=== PATIENT | female | born 1960 | race Caucasian/White ===

== ENCOUNTER 2016-08-02 19:15 | Emergency (ER) ==
[2016-08-02 19:30] VITALS: BP 128/082
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
== END 2016-08-02 20:41 | disposition home or self-care (01) ==
LOC: P.ED 19:15
DX: T76.21XA Adult sexual abuse, suspected, initial encounter (principal)
CPT/HCPCS: 99282

== ENCOUNTER 2018-07-28 12:55 | Inpatient (IN) ==
[2018-07-28] MEDS ORDERED: M.V.I.-12 10 ML, FOLIC ACID 1 MG, MAGNESIUM SULFATE 1 GM, THIAMINE 100 MG in NS 1,000 ML IV ONE (16:32)
[2018-07-28] MEDS ORDERED: ATIVAN IV ONE (16:33)
--- NOTE | 2018-07-28 16:38 | PROVIDER DOCUMENTATION ---
This chart was entered by Lety Faulkner Scribe, acting as scribe for Sunni Henson CRNP. HPI-General Adult - General Chief Complaint: Dizziness Stated Complaint: WEAKNESS N/V/D Time Seen by Provider: 07/28/18 16:23 Source: patient Allergies/Adverse Reactions: Patient Allergies Allergy/AdvReac Type Severity Reaction Status Date / Time No Known Allergies Allergy Verified 07/28/18 16:57 - History of Present Illness -Gen Adult Nature of Presenting Problems: 57 yowf presents to the ed with multiple complaints of dizziness n/v/d, sob, wea kness, tremors, decreased appetite, cough and sts onset was 2 weeks prior. pt sts she can not ambulate well but walked back from the bathroom without assist while provider was in the room. pt admits to drinking wine x2 weekly but denies drinking this week. Location of Pain/Injury: reports: generalized Quality of Pain: reports: aching Severity: reports: moderate Onset/Duration: reports: other (2 weeks) Timing: reports: still present, intermittent Context/Activities at Onset: reports: light activity Modifying Factors: improves with: nothing Associated Symptoms: reports: cough, diarrhea, dizziness, loss of appetite, malaise, muscle aches, nausea, shortness of breath, vomiting, weakness, trouble walking. denies: fever/chills Similar Symptoms Previously?: No Recently seen or treated by another doctor?: No Review of Systems - Adult - REVIEW OF SYSTEMS - ADULT Constitutional: denies: chills, fever Eyes: reports: no symptoms reported Ears, Nose, Mouth & Throat: reports: no symptoms reported Cardiovascular: denies: chest pain, palpitations Respiratory: reports: see HPI, cough, shortness of breath. denies: wheezing Gastrointestinal: reports: see HPI, diarrhea, nausea, poor appetite, vomiting Genitourinary: reports: see HPI, incontinence Musculoskeletal: reports: see HPI, muscle aches, muscle weakness Integumentary: reports: no symptoms reported Neurological: reports: see HPI, dizziness/vertigo, loss of balance, tremors. denies: headache/migraines, slurred speech Psychiatric: reports: no symptoms reported Endocrine: reports: no symptoms reported Hematologic/Lymphatic: reports: no symptoms reported Allergic/Immunologic: reports: no symptoms reported All Other Systems: Reviewed and Negative Past History - Adult - PAST MEDICAL HISTORY-ADULT Review of Records: reports: Old Records Reviewed, Nursing Assessment Review, Medications Reviewed, Social history reviewed & non-contributory. Major Childhood Illnesses: reports: denies history Cardiovascular: reports: denies history Respiratory: reports: denies history Gastrointestinal: reports: denies history Obstetrical/Gynecological: reports: denies history Genitourinary: reports: denies history Musculoskeletal: reports: denies history Hand Dominance: Right Handed Neurological: reports: denies history Psychiatric: reports: depression Endocrine/Immune: reports: denies history Other Conditions: reports: denies history - PRIOR SURGERIES/PROCEDURES Surgical/Procedure History: reports: reviewed, not pertinent - IMMUNIZATION STATUS Childhood Immunizations: See Nurse Assessment Flu Vaccine: See Nurse Assessment - FAMILY HISTORY Family History: reviewed, not pertinent - SOCIAL HISTORY Smoking: cigarettes, greater than 1 pack/day Provider spent 3-5 mins advising pt. on dangers of tobacco.: Discussed manners to quit use, and f/u contacts for add'l counseling. Substance Use: alcohol Alcohol Use Frequency: twice a week Number of drinks per typical drinking period:: 3-4 drinks Living Situation: alone Physical Exam-General - PHYSICAL EXAM-ADULT Initial Vital Signs Reviewed: Yes - CONSTITUTIONAL General Appearance: alert, mild distress - EYES Eyes: PERRL/EOMI, scleral icterus - HEAD, EARS, NOSE, MOUTH & THROAT HENMT: normocephalic/atraumatic, TMs normal, dental decay. negative: moist mucous membranes (dry) - NECK Neck: non-tender, full range of motion, supple, normal inspection, tender lateral (sts posterior neck muscle tenderness) - RESPIRATORY Respiratory: chest non-tender, lungs clear, normal breath sounds, no pleuratic chest pain, no respiratory distress, no accessory muscle use - CARDIOVASCULAR Cardiovascular: normal peripheral pulses, regular rate, rhythm, no gallop, no murmur, tachycardia (122) - GASTROINTESTINAL (ABDOMEN) Abdominal Exam: normal bowel sounds, soft, distended (Ascites), other (diarrhea while in ed). negative: guarding - GENITOURINARY Female Genitalia/Pelvic Exam: deferred Rectal Exam: deferred Hemoccult Exam: heme positive stool (Obtained from BM) - LYMPHATIC Lymphatic: no adenopathy - MUSCULOSKELETAL Back Exam: normal inspection Extremity: normal range of motion, non-tender, normal inspection, no pedal edema - SKIN Integumentary: normal turgor, warm/dry, pallor - NEUROLOGIC Neurologic: grossly normal - PSYCHIATRIC Psych/Mental Status: normal mood/affect, normal thought content, normal thought process, oriented x 3 Progress - PLAN OF CARE/RESULTS Progress/Plan/Lab Results: Vital Signs - 8 hr 07/28/18 13:20 Temperature 98.2 F Pulse Rate 122 H Respiratory Rate 20 Blood Pressure 114/77 O2 Sat by Pulse Oximetry 97 Orders Category Date Time Status ALCOHOL BLOOD Stat Lab 07/28/18 16:21 Uncollected CBC WITH ELECTRONIC DIFF [HEME] Stat Lab 07/28/18 16:20 Uncollected COMPREHENSIVE METABOLIC PANEL [CHEM] Stat Lab 07/28/18 16:21 Uncollected LIPASE [CHEM] Stat Lab 07/28/18 16:[address] W/POSS RFLX CULT [URINALYSIS] Stat Lab 07/28/18 16:21 Uncollected 1841 - patient had mucous stool almost black in color. Patient denies eating anything dark. Hemoccult collected. Result Diagrams: 07/28/18 16:55 07/28/18 16:55 - REASSESSMENT Reassessment #1 Time Reassessed: 17:23 Status: unchanged - CT/MRI 1 CT Study: Abdomen Impression: See EMR Report ([facility] [address] [facility], [address], [place] [address] Department of Imaging Patient: ANGLE PATTON Date: 07/28/18MR#: [id number] : 1960ADM Status: REG [facility]#: [id number] Age/Sex: 57/FRoom/Bed: Loc: P.ED Ordering Physician: Sunni Henson Family Physician: Nia Green Reason for Procedure: abd pain/elevated LFTs Signed EXAM: CT ABD/PELVIS W/IV CONT ONLY 07/28/2018 HISTORY: abd pain/elevated LFTs TECHNIQUE: This exam was performed using automated exposure control, adjustment of mA or kV according to patient size, and/or use of iterative reconstruction technique. COMMENT: There is no evidence of acute disease in the visualized portion of the chest. There is severe hepatic steatosis. The liver is enlarged. The spleen is not enlarged. The adrenal glands are within normal limits. The pancreas is unremarkable in appearance. There is no evidence of cholelithiasis. The left kidney is without evidence of hydronephrosis or mass. There is marked cortical scarring in the right kidney suggesting chronic pyelonephritis. There is no evidence of bowel obstruction. The aorta is not distended. There is no evidence of significant adenopathy. Pelvis: The appendix is normal in appearance. There is diverticulosis in the sigmoid colon without evidence of active diverticulitis. There is no evidence of free fluid. There are no masses and there is no evidence of significant adenopathy. The visualized skeleton is intact. IMPRESSION: Steatohepatitis with hepatomegaly. Electronically signed by Donte Mcfadden 07/28/2018 7:03 PM 07/28/18 1903 Interpreting Physician: Donte Mcfadden MD Dictated Date/Time: 07/28/18 1859 cc: Sunni Henson; Nia Green) - CONSULTS/PCP/HOSPITALIST Notification #1 *Consult/PCP/Hospitalist*: [place] Time Discussed: 19:34 Consult Disposition: other (Consult Hospitalist @ ) #2 Consult: [place] Time Discussed: 20:47 Consult Disposition: Admit (admit to ICU/stepdown pending bed availability) Departure - Departure Date of Disposition Decision: 07/28/18 Time of Disposition Decision: 20:20 DIAGNOSIS: Elevated liver enzymes, Melena Anemia Qualifiers: Anemia type: unspecified type Qualified Code(s): D64.9 - Anemia, unspecified Disposition: ADMITTED INPATIENT 09 Certified Medical Emergency: Emergent Condition: Fair Referrals and Follow-Ups: Nai Green [Primary Care Provider] - - Critical Care Note This patient required my direct & personal management of CC.: No Attestation - Physician/ DAYANA Attestation Patient care was provided by Advanced Practice Provider:: Yes Advanced Practice Provider:: Henson,Sunni A. Advanced Practice Provider documentation review:: The Mid-level provider documentation, treatment plan and medical decision making was reviewed by the physician who agrees with all treatment and medical decision making by the MLP. The physician spent face to face time with patient:: Yes (MD Pacheco) Advanced Practice Provider documentation review:: Supervising physician onsite and consulted in the evaluation and care of this patient. The physician did have a face to face encounter with the patient. This chart was documented by the indicated scribe, (Lety Faulkner Scribe) and accurately reflects the services I performed and decisions made by , Sunni Henson CRNP, as attested by the provider's signature.
[2018-07-28 17:21] LABS: BASO# 0.02 X1000 (0.0-0.2); BASO% 0.2 % (0.0-0.8); HEMATOCRIT 33.2 % (37.0-47.0); HEMOGLOBIN 11.6 g/dL (12.0-16.0); IMM GRAN% 1.2 % (0.0-0.5); LYMPH# 0.72 X1000 (1.2-3.4); MCH 34.8 PG (27-31); MCHC 34.9 g/dL (33-37); MCV 99.7 FL (81-99); MONO# 0.47 X1000 (0.11-0.59); MONO% 5.9 % (1.7-9.3); MPV 11.9 FL (7.4-10.4); NEUT# 6.71 X1000 (1.4-6.5); NEUT% 83.7 % (42.2-75.2); PLT 118 X1000 (130-400); RBC 3.33 XMIL (4.2-5.4); RDW 15.7 % (11.5-14.5); WBC 8.02 X1000 (4.8-10.8)
[2018-07-28 17:38] LABS: AGAP 24; ALBUMIN 3.1 g/dL (3.5-5.0); ALKALINE PHOSPHATASE 387 U/L (32-104); BUN 7 mg/dL (8-22); CALCIUM 8.5 mg/dL (8.8-10.2); CHLORIDE 86 mmol/L (98-107); COSMO 263; CREATININE 0.3 mg/dL (0.5-0.9); ESTIMATED GFR > 60; GLUCOSE 134 mg/dL (70-104); GPT 272 U/L (10-36); LIPASE 23 U/L (13-60); POTASSIUM 4.1 mmol/L (3.5-5.1); SODIUM 131 mmol/L (136-145); TCO2 21 mmol/L (25-35); TOTAL PROTEIN 6.9 g/dL (6.3-8.3)
[2018-07-28 18:49] LABS: GOT 741 U/L (10-30)
[2018-07-28 18:54] LABS: OCCULT BLOOD 1 POSITIVE (NEGATIVE)
--- NOTE | 2018-07-28 19:05 | Diag Imaging Result Doc PS360 ---
EXAM: CT ABD/PELVIS W/IV CONT ONLY 07/28/2018 HISTORY: abd pain/elevated LFTs TECHNIQUE: This exam was performed using automated exposure control, adjustment of mA or kV according to patient size, and/or use of iterative reconstruction technique. COMMENT: There is no evidence of acute disease in the visualized portion of the chest. There is severe hepatic steatosis. The liver is enlarged. The spleen is not enlarged. The adrenal glands are within normal limits. The pancreas is unremarkable in appearance. There is no evidence of cholelithiasis. The left kidney is without evidence of hydronephrosis or mass. There is marked cortical scarring in the right kidney suggesting chronic pyelonephritis. There is no evidence of bowel obstruction. The aorta is not distended. There is no evidence of significant adenopathy. Pelvis: The appendix is normal in appearance. There is diverticulosis in the sigmoid colon without evidence of active diverticulitis. There is no evidence of free fluid. There are no masses and there is no evidence of significant adenopathy. The visualized skeleton is intact. IMPRESSION: Steatohepatitis with hepatomegaly. Electronically signed by Donte Mcfadden 07/28/2018 7:03 PM
[2018-07-28] MEDS ORDERED: ATIVAN IV PRN (20:56)
[2018-07-28] MEDS ORDERED: SODIUM CHLORIDE 0.9% INJ SCH (21:00)
[2018-07-28 21:11] LABS: INR 1.14; PROTIME 15.2 Seconds (11.0-16.0)
[2018-07-28 21:12] LABS: PTT 37.1 Seconds (22.3-41.8)
[2018-07-28] MEDS ORDERED: ZOFRAN IV PRN (21:17)
[2018-07-28 21:30] LABS: MAGNESIUM 1.7 mg/dL (1.5-2.7); PHOSPHORUS 1.9 mg/dL (2.7-4.5)
--- NOTE | 2018-07-28 21:57 | Diag Imaging Result Doc PS360 ---
EXAM: CT HEAD W/O CONTRAST 07/28/2018 HISTORY: Seizure,Hx of Alcohol Abuse TECHNIQUE: This exam was performed using automated exposure control, adjustment of mA or kV according to patient size, and/or use of iterative reconstruction technique. COMMENT: There is mild cerebral atrophy. There is no evidence of mass effect, bleed, or abnormal extra-axial fluid collection. The visualized paranasal sinuses are clear. The calvarium is intact. There are no previous studies available for comparison. IMPRESSION: No evidence of acute intracranial disease. Electronically signed by Donte Mcfadden 07/28/2018 9:54 PM
[2018-07-28] MEDS: PROTONIX IV SCH (22:24)
[2018-07-28] MEDS: NS 1,000 ML IV SCH (22:34)
[2018-07-28] MEDS: ATIVAN IV PRN (23:07)
--- NOTE | 2018-07-28 23:33 | ED EKG INTERP ---
EKG Interpretation - EKG Time of EKG reading by physician:: 23:30 EKG Read and Signed by:: Aubrey Medrano EKG Interpretation (*Must complete 3 of following elements*): Abnormal Rate: 123 Rhythm: Sinus tachycardia with short IL IL Interval: shortened Attestation - Physician/ DAYANA Attestation Patient care was provided by Advanced Practice Provider:: Yes Advanced Practice Provider:: Sunni Henson Advanced Practice Provider documentation review:: The Mid-level provider documentation, treatment plan and medical decision making was reviewed by the physician who agrees with all treatment and medical decision making by the MLP. The physician spent face to face time with patient:: Yes (MD Pacheco) Advanced Practice Provider documentation review:: Supervising physician onsite and consulted in the evaluation and care of this patient. The physician did have a face to face encounter with the patient.
--- NOTE | 2018-07-29 06:40 | EKG Report ---
Test Performed on : 07/28/2018 11:26:06 PM Test Reason : GI Bleed, Alcohol Abuse Blood Pressure : / mmHG Vent. Rate : 123 BPM Atrial Rate : 123 BPM P-R Int : 104 ms QRS Dur : 070 ms QT Int : 414 ms P-R-T Axes : 000 010 074 degrees QTc Int : 592 ms Sinus tachycardia. with short CT Nonspecific T wave abnormality Abnormal ECG No previous ECGs available Unconfirmed Result
[2018-07-29 07:19] LABS: BASO# 0.01 X1000 (0.0-0.2); BASO% 0.1 % (0.0-0.8); EOS# 0.01 X1000 (0.0-0.7); EOS% 0.1 % (0.0-10.0); HEMOGLOBIN 9.9 g/dL (12.0-16.0); IMM GRAN# 0.08 X1000 (0.0-0.04); IMM GRAN% 1.2 % (0.0-0.5); LYMPH# 1.19 X1000 (1.2-3.4); LYMPH% 17.3 % (20.5-51.1); MCH 34.5 PG (27-31); MCHC 34.1 g/dL (33-37); MONO# 0.34 X1000 (0.11-0.59); MONO% 4.9 % (1.7-9.3); MPV 11.5 FL (7.4-10.4); NEUT# 5.26 X1000 (1.4-6.5); NEUT% 76.4 % (42.2-75.2); PLT 96 X1000 (130-400); RBC 2.87 XMIL (4.2-5.4); RDW 15.5 % (11.5-14.5); WBC 6.89 X1000 (4.8-10.8)
[2018-07-29 07:37] LABS: BILIRUBIN URINE 3+ (NEGATIVE); BLOOD URINE NEGATIVE (NEGATIVE); CLARITY SL. CLOUDY (CLEAR); COLOR AMBER; GLUCOSE URINE NEGATIVE (NEGATIVE); KETONE URINE 1+(Small) mg/dL (NEGATIVE); LEUKOCYTES URINE 1+ (NEGATIVE); NITRITE URINE NEGATIVE (NEGATIVE); PH URINE 6.5; PROTEIN URINE 1+(30 mg/dL) mg/dL (NEGATIVE); UROBILINOGEN URINE 4 mg/dL
[2018-07-29 07:41] LABS: URINE BACTERIA 4+ /HFP; URINE EPITHELIAL CELLS >10 /HPF (<10); URINE RBC <10 /HPF (<10); URINE SOURCE CLEAN CATCH
[2018-07-29] MEDS: ATIVAN IV PRN (07:49)
[2018-07-29 08:00] LABS: AGAP 16; ALBUMIN 2.5 g/dL (3.5-5.0); ALKALINE PHOSPHATASE 322 U/L (32-104); BUN 5 mg/dL (8-22); CALCIUM 7.8 mg/dL (8.8-10.2); CHLORIDE 89 mmol/L (98-107); COSMO 259; CREATININE 0.3 mg/dL (0.5-0.9); ESTIMATED GFR > 60; GLUCOSE 116 mg/dL (70-104); GOT 564 U/L (10-30); GPT 217 U/L (10-36); MAGNESIUM 1.7 mg/dL (1.5-2.7); POTASSIUM 3.4 mmol/L (3.5-5.1); SODIUM 130 mmol/L (136-145); TCO2 25 mmol/L (25-35); TOTAL PROTEIN 5.8 g/dL (6.3-8.3)
[2018-07-29 08:08] LABS: PHOSPHORUS 0.8 mg/dL (2.7-4.5)
[2018-07-29] MEDS ORDERED: POTASSIUM PHOSPHATE 15 MMOL in NS 250 ML IV ONE (09:00)
[2018-07-29] MEDS: NS 1,000 ML IV SCH (09:15)
[2018-07-29] MEDS: PROTONIX IV SCH (09:15)
[2018-07-29] MEDS ORDERED: M.V.I.-12 10 ML, FOLIC ACID 1 MG, MAGNESIUM SULFATE 1 GM, THIAMINE 100 MG in NS 1,000 ML IV SCH (10:00)
[2018-07-29] MEDS ORDERED: ROCEPHIN 1 GM in NS 50 ML IV SCH (10:00)
--- NOTE | 2018-07-29 10:07 | Diag Imaging Result Doc PS360 ---
EXAM: US ABDOMEN-COMPLETE - 07/29/2018 HISTORY: Abd Pain,Alcohol Abuse TECHNIQUE: Ultrasound abdomen COMPARISON: 09/10/2017 FINDINGS: The liver is borderline prominent in size and appears diffusely echodense, suggesting fatty infiltration. There is no focal liver lesion identified. Doppler image shows hepatopedal flow in the portal vein. The spleen appears in the lower range of normal for size. There is no ascites seen. The gallbladder is visualized and demonstrates no abnormalities. There is no evidence of gallstones. The technologist reports negative sonographic Schreiber's sign. The common bile duct is normal caliber at 5 mm. The pancreas is obscured by bowel gas artifacts. There are no abnormalities of the bilateral kidneys identified. The abdominal aorta and IVC are partially obscured by bowel gas artifacts, but visualized portions appear normal caliber. IMPRESSION: Borderline hepatomegaly, with evidence of fatty infiltration of the liver. No evidence of focal liver lesion. No other visible abnormality. The pancreas is obscured by bowel gas artifacts. Electronically signed by Mesfin Elizondo 07/29/2018 10:04 AM
--- NOTE | 2018-07-29 10:11 | HISTORY AND PHYSICAL ---
PRIMARY CARE PHYSICIAN: Dr. Nia Green. CHIEF COMPLAINT: Dizziness, shortness of breath, weakness, decreased appetite, black/tarry stools, nausea, vomiting, diarrhea and tremors. HISTORY OF PRESENTING ILLNESS: This is a 57-year-old, female, who presents to [facility] ER with complaints of dizziness, shortness of breath, weakness, tremors, decreased appetite, cough, nausea, vomiting and diarrhea, black tarry stools. States she has been having difficulty ambulating, but was able to walk with assistance to the bathroom. States that she drinks or was drinking about a case of beer a day and decreased down to 2 bottles of wine daily. Her workup showed a hemoglobin and hematocrit on arrival of 11.6 and 33.2. Repeat this a.m. at 9.9 and 29.0. She had a positive stool for occult blood. She had a sodium level of 131, chloride was 86. The initial phosphorus was 1.9. This a.m. down to 0.8 with a potassium of 3.4. Her total bilirubin is 5.60, AST of 741, ALT 272, alkaline phosphatase 387. This morning, repeat labs showed a total bilirubin of 6.8, AST of 564 and an ALT of 217. Urinalysis had negative nitrites, but 1+ white blood cells, 4+ bacteria. We did a CT of the abdomen and pelvis that showed steatohepatitis with hepatomegaly. We did a CT of the head that showed no evidence of acute intracranial disease. So, she will be admitted to the [facility] for further evaluation and treatment. PAST MEDICAL HISTORY: She reports is none. PAST SURGICAL HISTORY: None. FAMILY HISTORY: Reviewed and noncontributory. SOCIAL HISTORY: She currently lives alone. Was drinking up to a case of beer a day and then decided to decrease and changed over to drinking 2 bottles of wine daily. Denied any illicit drug use. ALLERGIES: She has no known drug allergies. HOME MEDICATIONS: She is not taking any medications on a routine basis according to the patient. LABORATORY DATA: Showed a white blood cell count of 8.02, hemoglobin of 11.6, hematocrit 33.2, platelets 118. Repeat this morning showed a hemoglobin of 9.9, hematocrit 29. The PT and INR of 15.2 and 1.14. Sodium of 131, potassium 4.1, chloride 86, CO2 21. BUN of 7, creatinine 0.3, glucose 134, magnesium 1.7, phosphorus was 1.9. Total bilirubin of 5.60, AST 741, ALT 272, lipase of 23. Repeat labs this morning showed a sodium of 130, potassium 3.4, chloride 89, CO2 25, BUN of 5, creatinine 0.3, glucose was 116, phosphorus was down to 0.8. Total bilirubin of 6.80, AST of 564, ALT of 217. Urinalysis was negative nitrites, 1+ white blood cells, 4+ bacteria. Stool for occult blood was positive. Serum alcohol level was [address] of the abdomen and pelvis showed steatohepatitis with hepatomegaly. IMAGING STUDIES: Head CT showed no evidence of acute intracranial disease. EKG showed sinus tachycardia with short MT at 123. REVIEW OF SYSTEMS: She denied any fever, chills, blurred vision. She was positive for dizziness, weakness, decreased appetite, cough, shortness of breath. Denied any abdominal pain, but did state that she has had some black tarry stools, nausea, vomiting, diarrhea. Denied any burning or hurting with urination. PHYSICAL EXAMINATION: VITAL SIGNS: She had a temperature of 98.2 degrees, pulse 122, respirations 20, blood pressure 114/77, satting 97% on room air. GENERAL: This is a 57-year-old, female, who is sitting up in the bed and answers questions appropriately. HENT: She is noted to have some jaundice with yellow sclera noted. ENT was normal with oropharynx and nares clear. EYES: Pupils are equal, round and reactive to light and accommodation. Extraocular movements were intact. Again, her sclera were yellow in color. NECK: Normal inspection, normal range of motion. LUNGS: Clear to auscultation bilaterally with equal lung expansion and chest wall movement. ABDOMEN: Soft, but distended. Bowel sounds are present x4 quadrants. MUSCULOSKELETAL: She had 3/5 strength x4 extremities and required assistance with ambulating to the bathroom. NEUROLOGICAL: The cranial nerves 2-12 appear grossly intact. ASSESSMENT: 1. Gastrointestinal bleed. 2. Symptomatic anemia secondary to #1. 3. Urinary tract infection. 4. Hyponatremia. 5. Steatohepatitis with fatty liver disease and elevated liver function tests secondary to alcohol use and tobacco abuse. PLAN: She will be admitted to the [facility]. Placed on neuro checks q. 4 hours. Telemetry, incentive spirometry, n.p.o. We will consult GI. Check a hepatitis profile. Urine culture is pending and will do a complete abdomen ultrasound. Place on Ativan 1 mg IV q. 4 hours p.r.n. for alcohol withdrawal symptoms. Normal saline at 100 mL an hour, Zofran 4 mg IV q. 4 hours p.r.n., Protonix 40 mg IV q. 12 hours. We will give her some K-Phos 15 millimoles IV now, and we will do a banana bag of fluids daily. We will place her on Rocephin 1 gram IV q. 24 hours for her urinary tract infection. Recheck CBC BMP in the a.m. Dictated by SAMM Garrido for Brando Miller MD cc: SAMM Garrido MD Grace Thomas, MD
[2018-07-29] MEDS ORDERED: ATIVAN IV PRN ×2 (11:01→23:27)
[2018-07-29 11:44] LABS: HEMATOCRIT 27.8 % (37.0-47.0); HEMOGLOBIN 9.4 g/dL (12.0-16.0)
--- NOTE | 2018-07-29 11:55 | PROGRESS NOTE ---
DATE: 07/29/2018 SUBJECTIVE: The patient has no focal complaints. She came in with complaints of melena. She has a strong alcohol history and she was anemic. I do not think she was particularly hypotensive. She is a bit tachycardic, but overall stable. Again, she has a very profound alcohol history. She has elevated liver enzymes. She is hyperbilirubinemic. On exam she is jaundiced. To me, she had clinical features consistent with ascites. She has swollen abdomen with caput medusa, but her ultrasound showed no ascites thankfully. Workup in the ER consistent with alcoholic hepatitis, and she was admitted for treatment. She may qualify for steroids. We are going to send her to [facility] for GI consultation and evaluation. I am going to go ahead and start octreotide and Protonix, and we will follow her closely. She is hypophosphatemic; that will be supplemented. We will monitor those levels closely. Monitor H and H as well. I did discuss the case with Dr. Finch because she is a Dr. Finch patient; I do not think that they were aware of that initially. This is a [id number] encounter note with Caryn Mccartney. CRITICAL CARE TIME: 35 minutes for GI bleed requiring octreotide and IV PPI. cc: Brando Miller MD
[2018-07-29] MEDS ORDERED: THIAMINE IM ONE (13:27)
[2018-07-29] MEDS ORDERED: NEUTRA-PHOS PO ONE (13:29)
[2018-07-29] MEDS: SANDOSTATIN 500 MICROGM in D5W 100 ML IV SCH (17:02)
[2018-07-29] MEDS: ZIAC 2.5/6.25 MG PO SCH (20:57)
[2018-07-29] MEDS: POTASSIUM CHLORIDE 20 MEQ in LR 1,000 ML IV SCH (21:16)
[2018-07-29] MEDS: KLONOPIN PO SCH (21:16)
[2018-07-29] MEDS: PROTONIX 80 MG in NS 80 ML IV SCH ×2 (21:16→23:49)
[2018-07-30] MEDS: SANDOSTATIN 500 MICROGM in D5W 100 ML IV SCH (02:33)
[2018-07-30 07:17] LABS: HEMATOCRIT 30.6 % (37.0-47.0)
[2018-07-30 07:48] LABS: AGAP 14; BUN 2 mg/dL (8-22); CALCIUM 8.4 mg/dL (8.8-10.2); CHLORIDE 93 mmol/L (98-107); COSMO 262; CREATININE 0.5 mg/dL (0.5-0.9); ESTIMATED GFR > 60; GLUCOSE 150 mg/dL (70-104); MAGNESIUM 1.7 mg/dL (1.5-2.7); PHOSPHORUS 1.5 mg/dL (2.7-4.5); POTASSIUM 3.4 mmol/L (3.5-5.1); SODIUM 131 mmol/L (136-145); TCO2 24 mmol/L (25-35)
[2018-07-30] MEDS: POTASSIUM CHLORIDE 20 MEQ in LR 1,000 ML IV SCH ×2 (09:03→22:10)
[2018-07-30] MEDS: KLONOPIN PO SCH ×2 (09:03→19:55)
[2018-07-30 11:26] LABS: HEPATITIS PROFILE ACUTE SEE COMMENTS
[2018-07-30] MEDS ORDERED: TRENTAL PO SCH (13:00)
--- NOTE | 2018-07-30 17:32 | GASTROENTEROLOGY CONSULTATION ---
DATE: 07/30/2018 REASON FOR CONSULTATION: Abnormal LFTs, melena, alcohol abuse. HISTORY OF PRESENT ILLNESS: Mrs. Dorie Montejo is a 57-year-old woman with a past medical history of hypertension, who presented to [facility] yesterday with dizziness, shortness of breath, tremors, as well as nausea, vomiting, and diarrhea with black tarry stools. She reports drinking minimally, a few beers a day, although at the outside hospital, she states that she was drinking about a case of beer a day and decreased down to 2 bottles of wine daily. She denies any prior history of complications from alcohol abuse or liver disease. Denies any supplement use or Tylenol use. No new medications. She reports some dizziness, but no chest pain or shortness of breath. She does admit to having a fall a couple of times a couple days ago, without any injuries sustained. No prior EGD or colonoscopy per patient report. She had a head CT done in the outside hospital that did not show any acute process. The patient was transferred to [facility] for further evaluation and treatment of her underlying liver disease. PAST MEDICAL HISTORY: Hypertension. PAST SURGICAL HISTORY: C-sections x2. FAMILY HISTORY: No family history of GI malignancies or liver disease. SOCIAL HISTORY: Lives alone. Apparently drinks a case of beer daily up until about a month and half ago and decreased down to 2 bottles of wine daily, which she denies in the room currently. No history of drug use. ALLERGIES: No known drug allergies. REVIEW OF SYSTEMS: As per HPI, otherwise negative. PHYSICAL EXAMINATION: Vital Signs: Temperature 97.4, heart rate 105, respiratory rate 18, blood pressure 126/68, O2 saturation 96% on room air. The patient is awake, alert, tremulous, no acute distress. HEENT: Sclerae icteric with some mild jaundice. Neck: No JVD on neck or lymphadenopathy. Chest: Regular rate and rhythm. No murmurs, rubs, or gallops. Abdomen: Mildly distended, tympanic anteriorly. Bowel sounds are present. Nontender. Some scant ascites. Extremities: Lower extremities, no clubbing, cyanosis, or edema. Neuro: Patient is awake, alert, oriented x3. No asterixis on exam. Cranial nerves 2-12 grossly intact. She is tremulous. Psych: Depressed affect. LABS: White count of 6.89, hemoglobin 10.0 from 11.6 on 07/28, platelets of 96, 000. INR of 1.14. Sodium 131, potassium 3.4, chloride 93, bicarb 24, BUN 2, creatinine 0.5, glucose 150, total bilirubin 6.8, AST 564, ALT is 217, alkaline phosphatase is 322, albumin 2.5, total protein 5.8, ammonia 35, lipase 23. UA with 3+ bilirubin, 10 to 20 white blood cells. Alcohol level of 82. Imaging: CT abdomen and pelvis shows steatohepatitis with hepatomegaly. Head CT showed no evidence of acute intracranial disease. Abdominal ultrasound shows borderline hepatomegaly with evidence of fatty infiltration of the liver. No evidence of focal liver lesion. No other visible abnormality. ASSESSMENT AND PLAN: Ms. Dorie Montejo is a 57-year-old woman, who presented yesterday to [facility] with symptoms of dizziness, generalized weakness, nausea, vomiting, and diarrhea with black tarry stools. Workup was notable for mild anemia, hyponatremia, thrombocytopenia and elevated LFTs with a mixed pattern concerning for alcoholic hepatitis. Her urine culture is growing gram-negative rods. The patient's discriminant function is low. However, she is not a candidate for steroids given gastrointestinal bleeding and possible infection. I am concerned right now this patient is at risk for withdrawals given her tremors and tachycardia. #Alcoholic hepatitis. low discriminant function. Again, the patient is not a candidate for steroids given infection; Recommend that we continue to trend her LFTs. Obtain an acute hepatitis panel to rule out acute hepatitis, although I am pretty confident this is likely alcohol driven. Low threshold to start lactulose, if patient develops confusion from her alcohol abuse. #ETOH abuse: recommend CIWA protocol, thiamine and folate replacement. High- protein calorie diet. #Thrombocytopenia, likely secondary to alcohol versus cirrhosis. We will continue to monitor. No indication for platelet transfusion at this time. #Black tarry stools and anemia. The patient does not appear to be having active gastrointestinal bleeding at this time. Her BUN and creatinine is low, suggestive of absence of upper gastrointestinal bleeding. No prior EGD or colonoscopy in the past. We will consider upper GI endoscopy early next week prior to discharge, pending clinical course. #UTI: on antibiotics Thank you for this consult. We will follow with you. Please call with any questions or concerns. cc: Denzel Finch MD [facility]
[2018-07-30] MEDS: PROTONIX IV SCH ×2 (18:38)
[2018-07-30] MEDS: SODIUM CHLORIDE 0.9% INJ SCH (18:38)
[2018-07-30] MEDS: ZIAC 2.5/6.25 MG PO SCH ×2 (19:55→23:33)
[2018-07-30] MEDS ORDERED: NICODERM PATCH TD ONE (21:53)
[2018-07-30] MEDS: LIBRIUM PO SCH (22:10)
[2018-07-31] MEDS: SODIUM CHLORIDE 0.9% INJ SCH ×2 (06:27→18:21)
[2018-07-31] MEDS: LIBRIUM PO SCH ×3 (06:28→20:16)
[2018-07-31] MEDS: PROTONIX IV SCH ×2 (06:28→18:21)
[2018-07-31] MEDS: KLONOPIN PO SCH (08:39)
[2018-07-31] MEDS: POTASSIUM CHLORIDE 20 MEQ in LR 1,000 ML IV SCH ×2 (08:50→23:07)
[2018-07-31] MEDS: KEFLEX PO SCH ×3 (13:00→23:42)
[2018-07-31] MEDS: NICODERM PATCH TD SCH (13:00)
--- NOTE | 2018-07-31 13:55 | PROGRESS NOTE ---
DATE: 07/31/2018 SUBJECTIVE: The patient's chart was reviewed. In summary, patient was admitted on 07/28/2018 with anemia secondary to possible gastrointestinal bleed, hyponatremia, and transaminitis/hyperbilirubinemia, likely secondary to alcohol use. The patient was given a dose of Rocephin for underlying urinary tract infection. Serial hemoglobin and hematocrit were obtained. Gastroenterology was consulted yesterday. No recommendation for acute intervention was made. Over the course of the last 24 hours, patient has noted a mild increase in her tremor. She also has noted tobacco withdrawal. This morning, she is resting in bed. She denies fevers, chills, nausea, vomiting, shortness of breath, or chest discomfort. Her p.o. intake remains marginal. OBJECTIVE: T-max 98.7 degrees, heart rate 86 to 114, respirations 16 to 20, blood pressure 92 to 122 over 53 to 76.General: No acute distress. Cardiovascular: Regular rate and rhythm. No significant murmurs, rubs, or gallops. Pulmonary: Clear to auscultation bilaterally. Abdomen: Soft, nontender, nondistended. Positive bowel sounds. Extremities: Moves all extremities well. No significant clubbing, cyanosis, or edema. Dermatologic: Evaluation reveals no evidence of rash. LABORATORY DATA: None. Culture data: Urine culture returned positive for E. coli. ASSESSMENT AND PLAN: 1. Presumed alcoholic hepatitis-upon admission, patient's liver enzymes were noted to be grossly elevated. Gastroenterology was consulted. No acute intervention was recommended. At this point, we will continue supportive care. We will recheck enzymes in the a.m. Clinically, patient is improving. 2. Presumed alcoholism-the patient has demonstrated mild symptoms consistent with alcohol withdrawal. Today, heart rate is acceptable. She is being treated with clonazepam and Librium. We will discontinue clonazepam and use Librium only. We will titrate up or down as necessary. 3. Urinary tract infection- we will initiate Keflex therapy. 4. Anemia-upon admission, patient was Hemoccult positive. She has not, however, had any evidence of active melena. At this point, we will continue Protonix IV twice daily. We will follow serial hemoglobin and hematocrit evaluations. 5. Nicotine dependency-we will continue daily nicotine patches. 6. Weakness-the patient has profound weakness at present time. This likely is a consequence of her underlying hepatitis. We will encourage up in chair with assistance. We will follow this as well. 7. Disposition-at this point, patient continues to require senior living care in a hospital setting. We will plan discharge home once appropriate. cc: MD Denzel De La Torre MD
[2018-07-31] MEDS: ZIAC 2.5/6.25 MG PO SCH (20:16)
[2018-08-01] MEDS: LIBRIUM PO SCH ×5 (00:09→23:00)
[2018-08-01 06:25] LABS: BASO# 0.04 X1000 (0.0-0.2); BASO% 0.4 % (0.0-0.8); EOS# 0.07 X1000 (0.0-0.7); EOS% 0.8 % (0.0-10.0); HEMATOCRIT 32.1 % (37.0-47.0); HEMOGLOBIN 9.9 g/dL (12.0-16.0); IMM GRAN# 0.28 X1000 (0.0-0.04); IMM GRAN% 3.1 % (0.0-0.5); LYMPH# 1.71 X1000 (1.2-3.4); LYMPH% 18.7 % (20.5-51.1); MCH 33.8 PG (27-31); MCHC 30.8 g/dL (33-37); MCV 109.6 FL (81-99); MONO# 0.83 X1000 (0.11-0.59); MONO% 9.1 % (1.7-9.3); MPV 11.9 FL (7.4-10.4); NEUT# 6.23 X1000 (1.4-6.5); NEUT% 67.9 % (42.2-75.2); PLT 112 X1000 (130-400); RBC 2.93 XMIL (4.2-5.4); RDW 16.4 % (11.5-14.5); WBC 9.16 X1000 (4.8-10.8)
[2018-08-01] MEDS: SODIUM CHLORIDE 0.9% INJ SCH (06:33)
[2018-08-01] MEDS: PROTONIX IV SCH ×2 (06:33→18:45)
[2018-08-01 06:42] LABS: AGAP 11; ALB/GLOB RATIO 0.9; ALBUMIN 2.5 g/dL (3.5-5.0); ALKALINE PHOSPHATASE 253 U/L (32-104); BUN 1 mg/dL (8-22); CALCIUM 8.7 mg/dL (8.8-10.2); CHLORIDE 95 mmol/L (98-107); COSMO 261; CREATININE 0.5 mg/dL (0.5-0.9); ESTIMATED GFR > 60; GLUCOSE 84 mg/dL (70-104); GOT 289 U/L (10-30); GPT 140 U/L (10-36); SODIUM 133 mmol/L (136-145); TCO2 27 mmol/L (25-35); TOTAL BILIRUBIN 7.94 mg/dL (0.20-1.00); TOTAL PROTEIN 5.3 g/dL (6.3-8.3)
[2018-08-01] MEDS: KEFLEX PO SCH ×3 (10:07→23:00)
[2018-08-01] MEDS: NICODERM PATCH TD SCH (10:07)
[2018-08-01] MEDS: POTASSIUM CHLORIDE 20 MEQ in LR 1,000 ML IV SCH ×2 (10:07→23:00)
[2018-08-01 10:48] LABS: INR 1.03; PROTIME 14.4 Seconds (11.0-16.0)
[2018-08-01 10:49] LABS: PTT 38.1 Seconds (22.3-41.8)
--- NOTE | 2018-08-01 13:00 | PROGRESS NOTE ---
DATE: 08/01/2018 SUBJECTIVE: Upon my arrival this morning, patient was resting in bed. She stated she felt poorly. She noted considerable fatigue. She denied significant nausea, vomiting, shortness of breath, chest discomfort, fevers, or chills. Throughout the day yesterday, patient noted her condition to be largely unchanged. She has not had any further episodes of hematochezia or melena. OBJECTIVE: Vital signs: Temperature maximum 98.6 degrees, heart rate, 86 to 94, respirations 14 to 20, blood pressure 95 to 106 over 46 to 64. General: No acute distress. Jaundice. Cardiovascular: Regular rate and rhythm. No significant murmurs, rubs, or gallops. Pulmonary: Clear to auscultation bilaterally. Abdomen: Soft, nontender, nondistended. Positive bowel sounds. Extremities: Moves all extremities well. No significant clubbing, cyanosis, or edema. Dermatologic: Evaluation reveals no evidence of rash. LABORATORY DATA: White blood cell count 9.16, hemoglobin 9.9, hematocrit 32.1, MCV 109.6, platelet count 112,000. PT 14.4, INR is 1.03, PTT is 38.1, sodium 133, potassium 4, chloride 95, bicarb 27, BUN 1, creatinine 0.5, glucose 84, calcium 8.7, total bilirubin 7.94, total protein 5.3, albumin 2.5, alkaline phosphatase 253, AST 289, ALT 140. ASSESSMENT AND PLAN: 1. Presumed alcoholic hepatitis-patient's transaminases are trending downwards. Unfortunately, patient bilirubin is trending upward suggesting a cholestatic. At this point, supportive care continues to be indicated. She denies significant abdominal discomfort, nausea, or vomiting at present time. Interestingly, patient's synthetic function appears to be intact with normal PT, PTT and INR. 2. Presumed alcoholism-yesterday, clonazepam was discontinued. Librium was continued. Patient's symptoms appear to be reasonably controlled. 3. Urinary tract infection-cultures upon admission grew Escherichia coli. Patient was placed on Keflex yesterday. Thus far, she is tolerating this reasonably well. 4. Anemia-patient's hemoglobin and hematocrit remained stable. There is no evidence of active bleeding. Interestingly, patient's MCV is grossly elevated at 109.6. She was treated with a banana bag upon admission. We will check folic acid and B12 levels for the morning. 5. Nicotine dependence-patient is treated with nicotine patches. Symptoms are stable. 6. Profound weakness-this likely is a consequence of her acute hepatitis. We will encourage patient to eat all meals in a chair. We will determine whether the patient needs further physical therapy at the first of the week. 7. Disposition-at this point, patient continues to require [facility] care in a hospital setting. I anticipate discharge home in the not too distant future. cc: MD Denzel De La Torre MD
[2018-08-01] MEDS: ZIAC 2.5/6.25 MG PO SCH (20:50)
[2018-08-02] MEDS: LIBRIUM PO SCH ×5 (02:00→16:52)
[2018-08-02] MEDS: PROTONIX IV SCH (05:08)
[2018-08-02 06:55] LABS: AGAP 13; ALB/GLOB RATIO 0.9; ALBUMIN 2.7 g/dL (3.5-5.0); ALKALINE PHOSPHATASE 253 U/L (32-104); BUN 1 mg/dL (8-22); CALCIUM 8.8 mg/dL (8.8-10.2); CHLORIDE 97 mmol/L (98-107); COSMO 264; CREATININE 0.5 mg/dL (0.5-0.9); ESTIMATED GFR > 60; GLUCOSE 98 mg/dL (70-104); GOT 238 U/L (10-30); GPT 122 U/L (10-36); POTASSIUM 3.3 mmol/L (3.5-5.1); SODIUM 134 mmol/L (136-145); TCO2 24 mmol/L (25-35); TOTAL BILIRUBIN 9.56 mg/dL (0.20-1.00); TOTAL PROTEIN 5.7 g/dL (6.3-8.3)
[2018-08-02] MEDS: TRENTAL PO SCH ×3 (10:27→16:52)
[2018-08-02] MEDS: NICODERM PATCH TD SCH (10:28)
[2018-08-02] MEDS: SEPTRA DS PO SCH ×2 (10:32→20:29)
[2018-08-02] MEDS: VITAMIN B-1 PO SCH (10:32)
[2018-08-02] MEDS: CENTRUM SILVER PO SCH (10:32)
[2018-08-02] MEDS: VICON-C PO SCH (10:32)
--- NOTE | 2018-08-02 10:44 | GASTROENTEROLOGY PROGRESS NOTE ---
DATE: 08/02/2018 SUBJECTIVE: She is resting in bed. She feels weak. She denies any fevers, rigors, or chills. She denies any nausea or vomiting. She is moving her bowels. OBJECTIVE: Vital signs: Temperature 97.8 degrees, pulse rate of 81, respiratory rate of 16, blood pressure 129/77, saturating 98% on room air. Weight: Body weight of 133 pounds 8 ounces, BMI 24.4 kg/m2. General Appearance: She is moderately built, well nourished, lying in bed, in no acute distress. HEENT: Pale conjunctivae. Icteric sclerae. Pupils equal, reactive to light and accommodation. Neck: Supple. Abdomen: Soft, nondistended. No guarding or rebound. Extremities: No cyanosis or clubbing. Neurologic: She is awake, alert, and answers questions. DIAGNOSTIC STUDIES: Her hemoglobin is 9.9, hematocrit 32.1, white count 9.16, platelet count of 112,000. Sodium 134, potassium 3.3, chloride 97, bicarbonate 24, anion gap 13, BUN of 1, creatinine 0.5, glucose of 98, calcium is 8.8, total bilirubin is 9.56, AST 238 , ALT of 142, alkaline phosphatase, total protein 5.2, albumin of 2.7. B12 more than 2000, folate of 10.2. Hepatitis panel is nonreactive. Urine culture showing E. coli which is pansensitive. IMPRESSION AND PLAN: 1. Presumed alcoholic hepatitis. Her bilirubin is going up. We will start her on pentoxifylline 400 mg p.o. t.i.d. We will follow up on the liver enzymes Lux. We will also follow up on the daily labs including CMP and INR. Not a candidate for steroids as patient has UTI currently. 2. Gastrointestinal prophylaxis with Prilosec twice daily. 3. Tobacco abuse. Patient was counseled to quit smoking, and she will continue on NicoDerm nicotine patch. 4. The patient was also counseled to quit alcohol completely. 5. We will watch her for Alcohol withdrawal. 6. Anemia. We will start her on multivitamin and thiamine and folate. 7. Urinary tract infection (UTI), growing Escherichia coli. She is on Bactrim. The above plans were discussed with the patient, and all questions were answered. Please call us with any further questions. cc: MD Denzel Maciel MD [facility]
[2018-08-02] MEDS ORDERED: ALEVE PO ONE (15:58)
[2018-08-02] MEDS: PRILOSEC PO SCH (20:29)
[2018-08-02] MEDS: LIORESAL PO SCH (20:29)
[2018-08-02] MEDS: ZIAC 2.5/6.25 MG PO SCH (20:29)
[2018-08-03] MEDS: PRILOSEC PO SCH ×2 (06:09→20:03)
[2018-08-03 06:28] LABS: BASO# 0.05 X1000 (0.0-0.2); BASO% 0.6 % (0.0-0.8); EOS# 0.09 X1000 (0.0-0.7); HEMATOCRIT 32.2 % (37.0-47.0); HEMOGLOBIN 10.2 g/dL (12.0-16.0); IMM GRAN# 0.26 X1000 (0.0-0.04); IMM GRAN% 2.9 % (0.0-0.5); LYMPH# 1.74 X1000 (1.2-3.4); LYMPH% 19.6 % (20.5-51.1); MCH 34.6 PG (27-31); MCHC 31.7 g/dL (33-37); MCV 109.2 FL (81-99); MONO# 0.88 X1000 (0.11-0.59); MONO% 9.9 % (1.7-9.3); NEUT# 5.85 X1000 (1.4-6.5); PLT 152 X1000 (130-400); RBC 2.95 XMIL (4.2-5.4); WBC 8.87 X1000 (4.8-10.8)
[2018-08-03 06:33] LABS: INR 1.16; PROTIME 15.8 Seconds (11.0-16.0)
[2018-08-03 06:43] LABS: AGAP 14; ALB/GLOB RATIO 0.9; ALBUMIN 2.5 g/dL (3.5-5.0); ALKALINE PHOSPHATASE 233 U/L (32-104); BUN 1 mg/dL (8-22); CALCIUM 8.8 mg/dL (8.8-10.2); CHLORIDE 97 mmol/L (98-107); COSMO 269; CREATININE 0.5 mg/dL (0.5-0.9); ESTIMATED GFR > 60; GLUCOSE 82 mg/dL (70-104); GOT 208 U/L (10-30); GPT 107 U/L (10-36); POTASSIUM 3.2 mmol/L (3.5-5.1); SODIUM 137 mmol/L (136-145); TCO2 26 mmol/L (25-35); TOTAL BILIRUBIN 9.93 mg/dL (0.20-1.00); TOTAL PROTEIN 5.2 g/dL (6.3-8.3)
[2018-08-03] MEDS ORDERED: LACTULOSE PO SCH (09:00)
[2018-08-03] MEDS: VITAMIN B-1 PO SCH (10:16)
[2018-08-03] MEDS: NICODERM PATCH TD SCH (10:16)
[2018-08-03] MEDS: CENTRUM SILVER PO SCH (10:17)
[2018-08-03] MEDS: LIBRIUM PO SCH ×3 (10:17→18:45)
[2018-08-03] MEDS: VICON-C PO SCH (10:17)
[2018-08-03] MEDS: SEPTRA DS PO SCH ×2 (10:17→20:03)
[2018-08-03] MEDS: TRENTAL PO SCH ×3 (10:17→18:46)
[2018-08-03] MEDS: ULTRAM PO PRN ×2 (10:28→23:29)
--- NOTE | 2018-08-03 15:00 | PROVIDER PROGRESS NOTE ---
Progress Note - - 08/03/2018 SUBJECTIVE: No acute overnight events. Afebrile. Patient complains of tremors. No confusion, N/V. Poor appetite. No abdominal pain, rectal bleeding, melena. OBJECTIVE Last Vital Signs Temp 98.1 F 08/03/18 10:41 Pulse 87 08/03/18 10:41 Resp 18 08/03/18 10:41 BP 106/62 08/03/18 10:41 Pulse Ox 95 08/03/18 10:41 Height 5 ft 2 in Weight 133 lb 8 oz GEN: chronic ill appearing, NAD HEENT: icteric sclera, MMM NECK: supple, no jvd PULM: CTAB, no wheezing ABD: soft NT/ND, NABS, no rebound or guarding EXT: no cee NEURO: no asterixis, nonfocal; sleepy but arousable SKIN: jaundiced LABS: 08/03/18 08/03/18 08/03/18 06:10 06:10 06:10 WBC 8.87 Hgb 10.2 L MCV 109.2 H Plt Count 152 Sodium 137 Potassium 3.2 L Chloride 97 L Carbon Dioxide 26 BUN 1 L Creatinine 0.5 Total Bilirubin 9.93 H AST 208 H ALT 107 H Alkaline Phosphatase 233 H Ammonia 57 H Total Protein 5.2 L Albumin 2.5 L INR 1.16 A/P: Ms. Dorie Montejo is a 57-year-old woman who presented with dizziness, generalized weakness, nausea, vomiting, and diarrhea with black tarry stools. Workup was notable for mild anemia, hyponatremia, thrombocytopenia and elevated LFTs with a mixed pattern concerning for alcoholic hepatitis. DF 16 on admission. She is on abx for UTI. No continued black stools. Tbili elevated. Started on trental. #Alcoholic hepatitis. low discriminant function - on trental for renal protection - encourage PO intake with high protein calorie diet - thiamine, folate, MVI - stop lactulose as patient does not have encephalopathy #ETOH abuse: ETOH cessation counseling #Thrombocytopenia: likely secondary to alcohol versus cirrhosis; improving. No indication for platelet transfusion at this time. #Black tarry stools and anemia: on PPI; NPO after MN for EGD tomorrow #UTI: on antibiotics #Hypokalemia: replete K Will follow with you. Please call with questions
[2018-08-03] MEDS ORDERED: KLOR-CON PO ONE (17:34)
[2018-08-03] MEDS: ZIAC 2.5/6.25 MG PO SCH (20:03)
[2018-08-03] MEDS: LIORESAL PO SCH (20:03)
[2018-08-04] MEDS: PRILOSEC PO SCH (06:25)
[2018-08-04] MEDS ORDERED: DIPRIVAN 1% ONE (06:58)
[2018-08-04] MEDS ORDERED: FENTANYL ONE (07:00)
--- NOTE | 2018-08-04 08:13 | OPERATIVE NOTE ---
PROCEDURE DATE: 08/04/2018 PROCEDURE: Upper GI endoscopy. PROVIDER: Aubrey Sanchez MD. INDICATIONS: Melena, anemia, and probable cirrhosis, rule out varices. MEDICATIONS: Monitored anesthesia care. DESCRIPTION OF PROCEDURE: Prior to the procedure, a history and physical was performed, and patient's medications and allergies were reviewed. The patient's tolerance to previous anesthesia was also reviewed. The risks and benefits of the procedure, and the sedation options and risks were discussed with the patient. All questions were answered and informed consent was obtained. After reviewing the risks and benefits, the patient was deemed in satisfactory condition to undergo the procedure. The endoscope was passed under direct visualization. Throughout the procedure, the patient's blood pressure, pulse and oxygen saturations were monitored continuously. The endoscope was introduced through the mouth and advanced to the second part of the duodenum. The upper GI endoscopy was accomplished without difficulty. The patient tolerated the procedure well. COMPLICATIONS: No immediate complications. ESTIMATED BLOOD LOSS: None. FINDINGS: The esophagus was normal without evidence of esophageal varices. Within the stomach, there were some mild portal hypertensive gastropathy seen in the body of the stomach. No gastric varices seen on retroflexion. The first portion and second portion of the duodenum was normal. IMPRESSION: - Normal esophagus - Mild portal hypertensive gastropathy - Normal duodenum RECOMMENDATIONS: - Resume diet. - Stop proton pump inhibitor. We will follow with you. Please call with any questions or concerns. cc: Denzel Finch MD [facility]
[2018-08-04] MEDS: VICON-C PO SCH (08:38)
[2018-08-04] MEDS: CENTRUM SILVER PO SCH (08:38)
[2018-08-04] MEDS: NICODERM PATCH TD SCH (08:38)
[2018-08-04] MEDS: VITAMIN B-1 PO SCH (08:38)
[2018-08-04] MEDS: TRENTAL PO SCH ×3 (08:38→21:56)
[2018-08-04] MEDS: SEPTRA DS PO SCH ×2 (08:38→21:56)
[2018-08-04] MEDS: LIBRIUM PO SCH ×3 (08:39→21:56)
[2018-08-04 10:56] LABS: DIRECT BILIRUBIN 8.8 mg/dL (0.00-0.20)
[2018-08-04] MEDS: LIORESAL PO SCH (21:56)
[2018-08-04] MEDS: ZIAC 2.5/6.25 MG PO SCH (21:56)
[2018-08-05] MEDS ORDERED: LIBRIUM ONE (08:58)
[2018-08-05] MEDS: CENTRUM SILVER PO SCH (09:18)
[2018-08-05] MEDS: VITAMIN B-1 PO SCH (09:18)
[2018-08-05] MEDS: NICODERM PATCH TD SCH (09:18)
[2018-08-05] MEDS: VICON-C PO SCH (09:18)
[2018-08-05] MEDS: TRENTAL PO SCH ×3 (09:18→21:03)
--- NOTE | 2018-08-05 10:16 | GASTROENTEROLOGY PROGRESS NOTE ---
DATE: 08/05/2018 SUBJECTIVE: The patient is resting in bed. The patient denies any new complaints. She is eating better. She is moving her bowels. She denies any fevers, rigors, or chills. PHYSICAL EXAMINATION: Vital Signs: Temperature 98.5, pulse rate of 77, respiratory rate of 20, blood pressure 110/60, saturating 93% on room air. Body weight of 130 pounds and 8 ounces. BMI 24.4 kg/m2. General Appearance: Moderately built, moderately nourished, lying in bed, in no acute distress. HEENT: Positive pallor. Positive icterus. Neck: Supple. Abdomen: Soft, nontender, nondistended. No guarding or rebound. Extremities: No cyanosis or clubbing. Neurological: No asterixis. A nonfocal exam. Skin: Jaundiced. LABS: Her hemoglobin and hematocrit are 10.2 and 32.2, white count of 8.8, platelet count of 152,000. Sodium of 137, potassium 3.2, chloride 97, bicarb 20, anion gap of 14, BUN of 1, creatinine 0.5, glucose of 82, calcium is 8.8. Total bilirubin is 11 and direct of 8.8. AST 208, ALT 107, alkaline phosphatase 233, total protein 5.2, albumin of 2.5, ammonia of 57. INR 1.16. Urine culture showing E. coli. IMPRESSION AND PLAN: 1. Alcoholic hepatitis, possible cirrhosis. We will continue with current management and continue to follow the liver enzymes. 2. Worsening jaundice with predominant direct hyperbilirubinemia. We will check antimitochondrial antibody and RODERICK. Last ultrasound done on 07/29/2018 did not reveal any focal liver lesions and common bile duct was measuring 5 mm. 3. Esophagogastroduodenoscopy yesterday showed evidence of portal hypertensive gastropathy suggesting portal hypertension, likely secondary to underlying cirrhosis. 4. Alcohol abuse. Patient counseled to quit alcohol completely. 5. Continue supportive care with multivitamin and thiamine. 6. Watch for withdrawal. She is on Librium 5 mg by mouth three times a day. 7. Smoker. Patient was counseled to quit smoking. She is on a NicoDerm patch. 8. She is on a regular diet. I discussed the plan with the patient and with Dr. Finch. All questions were answered. Please call us with any questions. cc: MD Denzel Maciel MD
[2018-08-05] MEDS: LIBRIUM PO SCH ×3 (10:59→21:02)
[2018-08-05] MEDS: ZIAC 2.5/6.25 MG PO SCH (21:03)
[2018-08-05] MEDS: LIORESAL PO SCH (21:03)
[2018-08-06 06:36] LABS: AGAP 15; ALB/GLOB RATIO 0.8; ALBUMIN 2.4 g/dL (3.5-5.0); ALKALINE PHOSPHATASE 232 U/L (32-104); BUN 1 mg/dL (8-22); CALCIUM 8.8 mg/dL (8.8-10.2); CHLORIDE 97 mmol/L (98-107); COSMO 270; CREATININE 0.4 mg/dL (0.5-0.9); ESTIMATED GFR > 60; GLUCOSE 109 mg/dL (70-104); GOT 210 U/L (10-30); GPT 80 U/L (10-36); POTASSIUM 2.7 mmol/L (3.5-5.1); SODIUM 137 mmol/L (136-145); TCO2 25 mmol/L (25-35); TOTAL BILIRUBIN 11.35 mg/dL (0.20-1.00); TOTAL PROTEIN 5.5 g/dL (6.3-8.3)
[2018-08-06 07:46] VITALS: BP 96/56
[2018-08-06] MEDS ORDERED: K-LYTE CL PO ONE (08:18)
[2018-08-06] MEDS: NICODERM PATCH TD SCH (09:15)
[2018-08-06] MEDS: VICON-C PO SCH (09:15)
[2018-08-06] MEDS: CENTRUM SILVER PO SCH (09:15)
[2018-08-06] MEDS: LIBRIUM PO SCH (09:17)
[2018-08-06] MEDS: ULTRAM PO PRN (09:48)
--- NOTE | 2018-08-07 09:52 | DISCHARGE SUMMARY ---
ADMISSION DATE: 07/28/2018 DISCHARGE DATE: 08/06/2018 FINAL DIAGNOSES: 1. Acute alcoholic hepatitis. 2. Anemia. 3. Hepatic steatosis. 4. Alcohol abuse. 5. Suspected cirrhosis with portal gastropathy on esophagogastroduodenoscopy. 6. Acute cystitis. 7. Hyponatremia. 8. Tobacco abuse. PRESENT ILLNESS: Ms. Montejo is a 57-year-old white female who presented to the [facility] Emergency Room with complaints of dizziness, shortness of breath, weakness, tremors, decreased appetite, nausea, vomiting, and some diarrhea with black, tarry stools. She also gave a history of drinking two bottles of wine a day. On physical examination, her vital signs were remarkable for mild tachycardia with a heart rate of 122, blood pressure 114/77. She was sitting on a stretcher answering questions. She had a trace of jaundice with slightly yellow sclerae noted. Lungs were clear. Cardiac exam was unremarkable. Abdomen was distended but soft and nontender with active bowel sounds. DATABASE: White blood count was normal Hemoglobin 11.6. Hematocrit 33.2%. Platelet count 118,000. INR was 1.14. Sodium 131. BUN 7 and creatine 0.3. Total bilirubin was 5.6. SGOT 741. SGPT 272. Urinalysis showed 1+ white blood cells, 4+ bacteria. Stool for occult blood was positive. CT of the abdomen and pelvis showed impressive steatohepatitis with hepatomegaly. HOSPITAL COURSE: She was admitted to [facility] and transferred the following day to [facility]. Her numerous electrolyte abnormalities were addressed. With abstinence from alcohol, her liver enzymes steadily improved. She required benzodiazepines for tremors. Urine culture grew E coli, sensitive to all antibiotics and she was treated with three days of trimethoprim sulfa. She was seen in consultation by cosmetician apprentice, Dr. Aubrey Sanchez, who assisted greatly in her care. With abstinence and supportive care, her liver enzymes fell to an AST of 238 and ALT of 122. Her alkaline phosphatase remained slightly elevated at 232. Her bilirubin, however, continued to climb. At discharge it has peaked out at 11.35. Vitamin B12 and folate levels were normal. She was initially given intravenous thiamine and changed over to an Allbee plus C multivitamin. On 08/04/2018, she underwent esophagogastroduodenoscopy and had a normal esophagus without evidence of esophageal varies. Some mild portal hypertensive gastropathy was seen in the body of the stomach. The first and second portion of the duodenum were normal. Social Service was consulted and she was given contact information for Alcoholics Anonymous. Her father and stepmother visited from [place], [place] and plan to take her at discharge back to [place] until her mother returns from [facility] in about a month. DISCHARGE MEDICATIONS: 1. Bisoprolol hydrochlorothiazide 2.5/6.25 mg one daily. 2. Chlordiazepoxide 5 mg three times a day for 10 days for alcohol withdrawal. 3. Nicotine patch 21 mg transdermally daily. 4. Vicon C tablets, one daily. 5. Potassium chloride 10 mEq twice a day for 15 days. DISCHARGE INSTRUCTIONS: She is to return to my office when she returns from [place] for followup. cc: Denzel Finch MD
== END 2018-08-06 11:29 | disposition home or self-care (01) | DRG 433 ==
LOC: P.ED 12:55 → SUPCPDRO 22:29 → SUATTDRO 22:29 → P.EDIPHOLD 22:29 → 4N 07-29 12:05
PROVIDERS: ADMIT Internal Medicine; ATTEND Internal Medicine
CPT/HCPCS: 51701; 70450; 74177; 76700; 80048; 80053; 80074; 80307; 80320; 81001; 82055; 82140; 82247; 82248; 82270; 82607; 82746; 82948; 83516; 83690; 83735; 84100; 85014; 85018; 85025; 85610; 85730; 86038; 86039; 86850; 86900; 86901; 87077; 87088; 87186; 93005; 94761; 94799; 96365; 96366; 96367; 96368; 96375; 96376; 99285; A9270; C9113; G0480; G6040; J0696; J2060; J2354; J3010; J3411; J3475; J3480; J7030; J7050; J7060; J7120; P9612; Q9967; S0164; XXXXX